=== PATIENT | female | born 2000 | race Caucasian/White ===

== ENCOUNTER 2021-08-31 06:52 | Emergency (ER) | payer SELFPAY ==
[2021-08-31 07:05] VITALS: BP 148/98; PULSE 84; RESP 18; TEMP 36.3; O2SAT 100; BMI 21.2
--- NOTE | 2021-08-31 09:58 | ED_ITS ---
HPI - Neck Pain/Injury General Chief Complaint: Neck Injury/Pain Stated Complaint: swollen neck left side Time Seen by Provider: 08/31/21 07:13 Source: patient and RN notes reviewed Mode of arrival: ambulatory Limitations: no limitations History of Present Illness HPI Narrative: 20-year-old young woman with 2 days of increasing pain around her left ear. She has not noticed any drainage. She has not been swimming. No dental problems. Does not hurt worse with neck rotation. She indicates a lump in the superior anterior left side lymph node chain. No fever. No trauma. Underlying history apparently of lupus. She notes herself to be somewhat immunosuppressed taking chronic steroids. I ask her about rashes I see on her face purse obscured by her mask she has some erythema over her eyelids bilaterally and malar area. History of peritonsillar abscess. No difficulty swallowing. Related Data Home Medications Medication Instructions Recorded Confirmed mycophenolate mofetil 500 mg tablet PO 08/31/21 Previous Rx's Medication Instructions Recorded amoxicillin 875 mg-potassium 1 tab PO BID #16 tab 08/31/21 clavulanate 125 mg tablet hydrocodone 5 mg-acetaminophen 325 1 - 2 tab PO Q6H #6 tab 08/31/21 mg tablet Allergies Allergy/AdvReac Type Severity Reaction Status Date / Time No Known Drug Allergies Allergy Verified 08/31/21 07:04 Review of Systems Status of ROS: Reports: 10 or more systems reviewed and unremarkable except as noted in History and below [facility] Medical History (Updated 08/31/21 @ 08:34 by Karla Chacon RN) Lupus Social History Smoking Status: Never smoker Do you use any of these nicotine containing products: None How often do you have a drink containing alcohol: monthly or less AUDIT-C Alcohol total score: 1 Non-prescribed substance use: denies use Exam Narrative: Exam Narrative: Is pleasant. Seems a little uncomfortable. Skin is warm and dry with mild erythema over eyelids and malar area as noted above. Head is atraumatic. Neck is supple. There is some fullness in the left lymph node cervical chain. Tender here as well. Tender to manipulation of the tragus of the ear little bit the pain as well. Bilateral TMs look to be clear though partially obscured with moderately dry cerumen. I do not see edema suggestive of an otitis externa particularly on the left ear. Further exam reveals a fullness around the angle of the jaw and superior and anterior. Quite tender here. Consistent with parotid gland involvement I think. Oropharyngeal exam is otherwise unremarkable without erythema or asymmetry. No calcification/stone/inflammation appreciated in the buccal area. Cardiovascular regular rate and rhythm. Const: Vital Signs, click to edit/add: Vital Signs - 24 hr 08/31/21 07:05 Temperature 97.4 F L Pulse Rate [Pulse Oximeter] 84 Respiratory Rate 18 Blood Pressure [Ri ght Upper Arm] 148/98 H Pulse Oximetry 100 Documenting provider has reviewed patient's vital signs: yes Course Course Hospital Course: Exam and interview as above Vital Signs Vital signs: Initial Vital Signs Temperature 97.4 F L 08/31/21 07:05 Temperature Source Temporal Artery Scan 08/31/21 07:05 Pulse Rate 84 08/31/21 07:05 Respiratory Rate 18 08/31/21 07:05 Blood Pressure 148/98 H 08/31/21 07:05 Blood Pressure Mean 114 08/31/21 07:05 Blood Pressure Position Sitting 08/31/21 07:05 Pulse Oximetry 100 08/31/21 07:05 Oxygen Delivery Method 08/31/21 07:05 Vital Signs Temperature 97.4 F L 08/31/21 07:05 Pulse Rate 84 08/31/21 07:05 Respiratory Rate 18 08/31/21 07:05 Blood Pressure 148/98 H 08/31/21 07:05 Pulse Oximetry 100 08/31/21 07:05 Temperature 97.4 F L 08/31/21 07:05 Pulse Rate 84 08/31/21 07:05 Respiratory Rate 18 08/31/21 07:05 Blood Pressure 148/98 H 08/31/21 07:05 Pulse Oximetry 100 08/31/21 07:05 MDM - Neck Pain/Injury MDM Narrative Medical decision making narrative: See above. Appears to have fullness/swelling of the parotid gland With history of immune mediated disease andimmunosuppression think it would be prudent to treat with antibiotics in this case. She notes that she is recommended not to take ibuprofen or similar products. Acetaminophen was not very helpful. We discussed potential options. She is initially declining then later thinks that might be helpful. Opiates were particularly what we discussed. Small quantity of Percocet was ultimately prescribed Medical Records Attestation: I reviewed the patient's medical records. Discharge Plan Discharge Clinical Impression: Acute parotitis Patient Disposition: Home, Self-Care Condition: Stable Additional Instructions: Be sure to stay well hydrated. Might try sucking on hard, in particular, sour candies. Given your underlying health difficulties, I would schedule a followup for later this week in clinic. Otherwise be seen sooner for marked increase in pain, swelling, redness, heat or a fever. Can take up to 1000 mg of acetaminophen per dose. Remember that each tablet of Percocet has 325 mg of acetaminophen in it. This is to be used for more intense pain. Prescriptions: New amoxicillin-pot clavulanate 875-125 mg tablet 1 tab PO BID Qty: 16 0RF hydrocodone-acetaminophen 5-325 mg tablet 1 - 2 tab PO Q6H Qty: 6 0RF No Action mycophenolate mofetil 500 mg tablet PO 0RF Label Comments: TAKE 2 TABLETS (1000MG) BY MOUTH TWICE A DAY Stand Alone [facility]
== END 2021-08-31 08:31 | disposition home or self-care (01) ==
LOC: ED 07:45
PROVIDERS: Emergency Provider Family Medicine; PCP Physician Assistant
DX: K11.20 Sialoadenitis, unspecified (principal)
CPT/HCPCS: 99283; 99284